=== PATIENT | male | born 1955 | race Caucasian/White ===

== ENCOUNTER → 2020-05-06 | Outpatient (CLI) | payer MEDICARE, OTHER | END | disposition home or self-care (01) | LOC: STAR 10:30 | PROVIDERS: ATTEND Internal Medicine Geriatric Medicine | DX: Z01.812 Encounter for preprocedural laboratory examination (principal); Z20.828 Contact with and (suspected) exposure to other viral communicable diseases; K86.89 Other specified diseases of pancreas; R10.12 Left upper quadrant pain | CPT/HCPCS: 36415; 87635; 93005 ==

== ENCOUNTER 2020-05-10 06:33 | Day surgery (SDC) | payer MEDICARE, OTHER ==
[~2020-05-10] VITALS: Ht 177.8 cm; Wt 87.7 kg
[2020-05-10] MEDS ORDERED: CHLORHEXIDINE 15 ML UDC MM ONE (07:30)
[2020-05-10] MEDS ORDERED: LACTATED RINGERS 1,000 ML IV SCH (07:30)
[2020-05-10] MEDS ORDERED: FENTANYL PF 250 MCG/5ML ONE (08:00)
[2020-05-10] MEDS ORDERED: MIDAZOLAM 1 MG/ML, 2ML ONE (08:00)
[2020-05-10] MEDS ORDERED: PROPOFOL 10 MG/ML, 20ML ONE ×2 (08:00→09:37)
[2020-05-10] MEDS ORDERED: hydrALAzine 20 MG/ML, 1ML IV PRN (08:30)
[2020-05-10] MEDS ORDERED: HYDROmorphone 1 MG/ML, 1ML INJ IVPush PRN (08:30)
[2020-05-10] MEDS ORDERED: ACETAMINOPHEN 325 MG TABLET PO PRN (08:30)
[2020-05-10] MEDS ORDERED: FENTANYL PF 100 MCG/2ML IV PRN (08:30)
[2020-05-10] MEDS ORDERED: PROMETHAZINE 25 MG/ML, 1ML IVPush PRN (08:30)
[2020-05-10] MEDS ORDERED: ONDANSETRON 2MG/ML, 2ML IVPush PRN (08:30)
[2020-05-10] MEDS ORDERED: OXYcodone 5 MG/5 ML ORAL.SOL UDC PO PRN (08:30)
[2020-05-10] MEDS ORDERED: LABETALOL 5MG/ML, 20ML IV PRN (08:30)
[2020-05-10] MEDS ORDERED: AMPICILLIN/SULBACTAM 3 GM in SODIUM CHLORIDE 0.9% 100 ML IV ONE (10:00)
== END 2020-05-10 11:00 | disposition home or self-care (01) ==
LOC: OUT 06:33
PROVIDERS: ATTEND Internal Medicine Geriatric Medicine
DX: K86.2 Cyst of pancreas (principal); K80.20 Calculus of gallbladder without cholecystitis without obstruction; K25.9 Gastric ulcer, unspecified as acute or chronic, without hemorrhage or perforation; R94.8 Abnormal results of function studies of other organs and systems; Z72.89 Other problems related to lifestyle; Z98.890 Other specified postprocedural states; Z79.82 Long term (current) use of aspirin; Z79.899 Other long term (current) drug therapy
CPT/HCPCS: 43242; 82150; 82378; 88173; J2250; J2704; J3010; J7120

== ENCOUNTER 2021-02-11 13:52 | Emergency (ER) | payer MEDICARE, OTHER ==
[~2021-02-11] VITALS: Ht 177.8 cm; Wt 90.0 kg
--- NOTE | 2021-02-11 14:15 | NUR ---
Jie espino in ED - 02/11/21 at 1420 by LANG Pt to be admitted to OR. Report called to CYNTHIA.
--- NOTE | 2021-02-11 14:37 | NUR ---
PT HAS NOT VOIDED SINCE 1699 YEST, IN A LOT OF PAIN. FONG [address] AGUILAR. SOME BLOOD, FELT LIKE THERE WAS A SLIGHT OBSTRUCTION WHEN FONG WENT IN. PT REPORTS IMMEDIATE RELIEF.
--- NOTE | 2021-02-11 15:10 | NUR ---
fajardo irrigated w sterile water per dr lopez. raquel colored now. ua walked to lab. plan blood work. pt reports feeling better and wants to go home. as
[2021-02-11 15:25] LABS: MICROSCOPIC AUTO
[2021-02-11 15:41] LABS: BASOPHILS % (AUTO) 0 % (0-1); EOSINOPHILS % (AUTO) 0 % (1-7); LYMPHOCYTES % (AUTO) 11 % (22-44); MEAN CORPUSCULAR HEMOGLOBIN 30.5 pg (27.5-34.5); MEAN CORPUSCULAR HGB CONC 34.3 g/dL (33.2-36.2); MONOCYTES % (AUTO) 6 % (2-9); NEUTROPHILS % (AUTO) 83 % (42-75); PLATELET COUNT 324 x10^3/uL (130-400); RED BLOOD COUNT 5.42 x10^6/uL (4.38-5.82); RED CELL DISTRIBUTION WIDTH 14.1 % (9.4-14.8)
[2021-02-11 15:51] LABS: ALBUMIN 4.1 g/dL (3.4-5.0); CALCIUM 9.6 mg/dL (8.5-10.1); CREATININE 0.98 mg/dL (0.7-1.3)
--- NOTE | 2021-02-11 16:04 | NUR ---
urine still bloody in fajardo. hand irrigated again. john aware. plan to cont hand irrigation for now. as
[2021-02-11 16:13] LABS: ANION GAP 4 mmol/L (5-15); CHLORIDE 105 mmol/L (98-107)
--- NOTE | 2021-02-11 16:26 | NUR ---
irrigated again until clear. small bloody clot seen. as
[2021-02-11 16:35] VITALS: BP 141/81
== END 2021-02-11 17:55 | disposition home or self-care (01) ==
LOC: ED 14:42
DX: R33.9 Retention of urine, unspecified (principal); R31.0 Gross hematuria
CPT/HCPCS: 36415; 51702; 80048; 81001; 82040; 85025; 99284

== ENCOUNTER 2021-02-13 10:23 | Emergency (ER) | payer MEDICARE, OTHER ==
[~2021-02-13] VITALS: Ht 177.8 cm; Wt 89.1 kg
--- NOTE | 2021-02-13 11:38 | NUR ---
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
--- NOTE | 2021-02-13 11:43 | NUR ---
PT BIB SELF VIA POV. PER PT HE HAD A CATHETER PLACED 3 DAYS AGO AT THIS ED, AND HE TRIED TO PULL IT OUT TODAY BECAUSE IT WAS UNCOMFORTABLE, NOW PT STATES THERE IS DRAINAGE OF URINE AROUND THE CATHETER. PT STATES "CAN'T YOU JUST PULL IT OUT NOW". PT EDUCATED THAT WE ARE AWAITING EDMD EVAL. PT RESTING IN [facility], MONITORING IN PLACE, NADN AT THIS TIME, [facility]CS[facility]AR[facility].
[2021-02-13 13:18] LABS: MICROSCOPIC INDICATED
--- NOTE | 2021-02-13 13:21 | NUR ---
BEDSIDE REPORT FROM LENA CRUZ. CARE ASSUMED. PER LENA CRUZ SHE "IRRIGATED CATH PER MD ORDER WITH 250 ML OUTPUT AND URINE SAMPLE WAS SENT" BY HER. URINARY DRAINAGE LEG BAG IN PLACE. PT REQUESTING "NEW LEG BAG WITH SHORTER TUBING LIKE BEFORE," INSISTENT "IT [THE BAG] IS NOT WORKING." NEW LEG BAG WITH SHORTER TUBING APPLIED PER PT REQUEST AND PROVIDER LEYLA GOYAL OKAY. PT UPDATED ON POC, AWAITING UA RESULTS. PT REQUESTING "THIS DAMN CATHETER JUST BE REMOVED, I'VE BEEN PEEING AROUND IT FOR HOURS, I'M FINE NOW." LEYLA GOYAL AWARE OF PT REQUEST. NO NEW ORDERS RECEIVED AT THIS TIME. CALL LIGHT IN REACH. FALL PRECAUTIONS IN PLACE. VSS. A&OX4.
--- NOTE | 2021-02-13 13:48 | NUR ---
PT YELLING AT THIS RN STATING "I WANT THIS FUCKING THING OUT, TELL THE DOCTOR THAT'S WHAT I WANT, I TRIED TO TAKE IT OUT AT HOME BUT NO ONE TOLD ME ABOUT THE BALLOON SO SOON I FELT THAT I STOPPED YANKING ON IT." DISCUSSED PT REQUEST WITH LEYLA GOYAL, AWARE, TO SEE PT AND DISCUSS.
--- NOTE | 2021-02-13 14:00 | NUR ---
LEYLA GOYAL AT BEDSIDE FOR RECHECK, DISCUSSING POC WITH PT AND PT REQUESTS
--- NOTE | 2021-02-13 14:15 | NUR ---
PT REFUSING IRRIGATION "WHY CAN'T WE JUST TAKE THIS FUCKING THING OUT, I'M TELLING YOU IT'S NOT WORKING RIGHT, I'M PEEING AROUND IT, TELL THE DOCTOR, GOD MITCH, I'M SORRY THIS IS JUST MAKING ME ANGRY." DISCUSSED WITH LEYLA GOYAL, WHO SPOKE WITH PT AND PT AGREED TO IRRIGATION AT THIS TIME
--- NOTE | 2021-02-13 15:00 | NUR ---
FONG CATH REMOVED WITHOUT ANY DIFFICULTY OR RESISTANCE PER PT REQUEST AND LEYLA GOYAL OKAY. PT GIVEN URINAL TO ATTEMPT TO VOID. AUTUMN/ILEANA LAWRENCE TECHS AT BEDSIDE CHAPARONE DURING FONG REMOVAL PER PT OKAY. LATE ENTRY 1430: IN TO IRRIGATE FONG WITH RM RN, PT VOIDING ON FLOOR AROUND CATH, SCANT DRAINAGE INTO LEG BAD, PUDDLE OF URINE ON FLOOR. DISCUSSED WITH LEYLA GOYAL, BLADDER SCANNED, RESULT 269, ABD WITH DISTENTION AND FIRMNESS, PT STATES "I FEEL LIKE I COULD PEE MORE." RESULTS DISCUSSED WITH LEYLA GOYAL, 100ML HAND IRRIGATION COMPLETED WITHOUT ANY RESISTANCE OR PAIN PER PT. PT IMMEDIATELY VOIDED LARGE AMOUNT AROUND FONG ONTO CAM PAD ON BEDDING AND MINIMAL DRAINAGE FROM FONG TUBING. BLADDER SCANNED, RESULT 419. DISCUSSED WITH LEYLA GOYAL AND PER PT CONTINUAL REQUEST FONG CATH TO BE REMOVED.
--- NOTE | 2021-02-13 15:19 | NUR ---
late note for 1030. environmental marketer: while attempting to triage this patient, pt agitated and uncooperative with attempting to collect VS. pt states "You need to taking this thing out now!" attempting to calm pt and orient him to triage process. pt pacing in triage office. pt swearing. pt states "just fucking take it out! I can pee just fine! I am peeing around the tube, so I don't need it!" pt states that he is angry that he cannot follow up with urologist for 3 months.
--- NOTE | 2021-02-13 16:02 | NUR ---
PT VOIDED 200ML BLOODY URINE, DENIES PAIN OR DIFFICULTY URINATING. PT REQUESTING TO GO HOME. REPORTS "I'M SO HAPPY I COULD GO, IT FEELS SO MUCH BETTER, THE FLOW IS GOOD, I WILL TAKE MY FLOMAX, MY STOMACH DOESN'T FEEL FIRM AND DISTENDED EITHER. I WANT TO GO HOME." LEYLA GOYAL AT BEDSIDE DISCUSSING DISCHARGE POC WITH PT.
--- NOTE | 2021-02-13 16:16 | NUR ---
PT VOIDED ADDITIONAL 100ML BLOODY URINE, NO CLOTS NOTED. BLADDER SCAN, PVR 358ML. DISCUSSED WITH LEYLA GOYAL. PT ADAMENT "I WANT TO GO HOME, I DO NOT WANT THE FONG, I WILL COME BACK IF I NEED TOO, I'M TELLING YOU I FEEL SO MUCH BETTER NOW THAT THE FONG IS OUT." PT STILL HAS DISTENTION AND FIRMNESS NOTED, ALTHOUGH IMPROVED FROM INITIAL ASSESSMENT. LEYLA GOYAL DISCUSSED POC AND RISKS WITH PT, PT VERBALIZED UNDERSTANDING AND CONTINUES TO REFUSE FONG FOR BLADDER DRAINAGE/RELIEF, PT STATES "I WANT TO GO HOME, I WILL COME BACK WHEN AND IF I NEED TO, FOR NOW I FEEL BETTER, NO PAIN, I CAN SIT DOWN WITHOUT PAIN. I'M READY TO GO."
[2021-02-13 16:20] VITALS: BP 129/78
== END 2021-02-13 16:24 | disposition home or self-care (01) ==
LOC: ED 13:28
DX: N40.1 Benign prostatic hyperplasia with lower urinary tract symptoms (principal); R33.8 Other retention of urine
CPT/HCPCS: 51700; 81001; 87086; 99285